=== PATIENT | female | born 1995 | race Caucasian/White ===

== ENCOUNTER → 2017-07-05 | Outpatient (CLI) | payer OTHER | LOC: FLAB 12:47 | PROVIDERS: ATTEND Physician Assistant | DX: R10.9 Unspecified abdominal pain (principal) ==

== ENCOUNTER 2017-11-08 19:19 | Emergency (ER) | payer OTHER ==
--- NOTE | 2017-11-08 19:40 | EDPHY ---
H & P Stated Complaint: LLQ abd pain that started 2 weeks ago Source: Patient, RN/MD Exam Limitations: No limitations - Personal History LMP (Females 10-55): Extended Cycle BCP/Inj Current Tetanus/Diphtheria Vaccine: Yes Current Tetanus Diphtheria and Acellular Pertussis (TDAP): Yes - Medical/Surgical History Hx Asthma: No Hx Chronic Respiratory Disease: No Hx Diabetes: No Hx Cardiac Disease: No Hx Renal Disease: No Hx Cirrhosis: No Hx Alcoholism: No Hx HIV/AIDS: No Hx Splenectomy or Spleen Trauma: No Other PMH: cholecystectomy, bladder surgery, dental surgery - Social History Smoking Status: Never smoked Time Seen by Provider: 11/08/17 19:39 HPI/ROS: HPI: This is a 21-year-old female who presents with Chief Complaint: LLQ abd pain that started 2 weeks ago Location: Left lower quadrant Quality: Sharp, constant pain Duration: 2 weeks Signs and Symptoms: no fever, no nausea, no vomiting, no hematemesis, no blood in stool, no abdominal bloating, no diarrhea, no back pain, no urinary symptoms , no vaginal bleeding/discharge, no indigestion, no chest pain, no shortness of breath Timing: Worsening Severity: 10 out 10 Context: Patient is a student at [employer] from [employer] with complaints of 2 weeks worsening history of left lower quadrant pain that is now sharp, constant, nonradiating in nature. At work they performed a urinalysis that was normal as well as felicity a CBC that was unremarkable per the nurse practitioner. X-ray performed and showed no significant stool burden. On extended [id number] and has not had of period in 4 years. Patient denies any increased exercise or abdominal exercises. Reports some nausea but no vomiting/diarrhea/fever. Reports had a bowel movement today. Modifying Factors: None Comment: ROS: see HPI Constitutional: No fever, no chills, no weight loss Eyes: No blurred vision Respiratory: No shortness of breath, no cough Cardiovascular: No chest pain, no palpitations Gastrointestinal: + nausea, no vomiting, no diarrhea, no hematemesis, no blood in stool Genitourinary: No dysuria, no blood in urine Extremities: No myalgias, no edema Neurologic: No weakness, no numbness Skin: No rashes, no petechiae Hematologic: No bruising, no bleeding MEDICAL/SURGICAL/SOCIAL HISTORY: Medical history: Generally healthy. Does not take any regular medications. Surgical history: cholecystectomy, bladder surgery, dental surgery Social history: Student at [employer]. Family history noncontributory. CONSTITUTIONAL: Pleasant young adult white female, appears like she is in pain , awake and alert, no obvious distress HEENT: Atraumatic and normocephalic, PERRL, EOMI. Tympanic membranes clear. Oropharynx clear, no exudate and moist pink mucosa. Airway patent. No lymphadenopathy. No meningismus. Cardiovascular: Normal S1/S2, regular rate, regular rhythm, without murmur rub or gallop. PULMONARY/CHEST: Symmetrical and nontender. Clear to auscultation bilaterally. Good air movement. No accessory muscle usage. ABDOMEN: Soft, nondistended, severe left lower quadrant tenderness, no rebound , + guarding, no peritoneal signs, no masses or organomegaly. No CVAT. EXTREMITIES: 2/2 pulses, strength 5/5, no deformities, no clubbing, no cyanosis or edema. NEUROLOGICAL: no focal neuro deficits. GCS 15. SKIN: Warm and dry, no erythema. no rash. Good capillary refill. (Stacy Carbajal) Constitutional: Initial Vital Signs Temperature (C) 36.9 C 11/08/17 19:24 Heart Rate 100 11/08/17 19:24 Respiratory Rate 16 11/08/17 19:24 Blood Pressure 119/79 11/08/17 19:24 O2 Sat (%) 96 11/08/17 19:24 O2 Delivery Mode Room Air Allergies/Adverse Reactions: copper Allergy (Verified 11/08/17 19:28) hydrocodone Allergy (Verified 11/08/17 19:28) Home Medications: Medication Instructions Recorded Polyethylene Glycol 3350 [Miralax 17 gm PO DAILY #20 pkt 11/08/17 17 gm (*)] Medical Decision Making ED Course/Re-evaluation: Labs, IV medication, IV fluids, CT abdomen and pelvis scan Vital signs reviewed upon arrival in stable. No systemic signs. 1954: Given 1 L normal saline, IV morphine, IV Zofran 2035: Labs reviewed and grossly unremarkable. Called by radiologist who advised that CT abdomen and pelvis scan shows no acute intra-abdominal pathology. Reassessed patient reports abdomen no longer has discomfort. Abdominal exam is soft and nontender. Advised that moderate stool burden is seen on night time babysitter film. Patient reports that a similar incident happened in June. She admits started not drink enough water with poor diet consisting of process food. Patient wants to be discharged home with MiraLax daily and supportive care. This patient was seen under the supervision of my secondary supervising physician. I evaluated care for this patient independently. (Stacy Carbajal) I did not see this patient while she was in the emergency department. However her care was discussed with the PA while the patient was in the department. I agree with treatment plan and management (Milan Mckenna) Differential Diagnosis: Abdominal pain including but not limited to appendicitis, cholecystitis, gastritis and urinary tract infection. (Stacy Carbajal) - Data Points Laboratory Results: Laboratory Results 11/08/17 20:12 11/08/17 20:12 Medications Given: Discontinued Medications Sodium Chloride (Ns) 1,000 mls @ 0 mls/hr IV EDNOW ONE; Wide Open PRN Reason: Protocol Stop: 11/08/17 19:52 Last Admin: 11/08/17 20:12 Dose: 1,000 mls Morphine Sulfate (Morphine) 6 mg IVP EDNOW ONE Stop: 11/08/17 19:52 Last Admin: 11/08/17 20:10 Dose: Not Given Morphine Sulfate (Morphine) 6 mg IVP EDNOW ONE Stop: 11/08/17 20:10 Last Admin: 11/08/17 20:15 Dose: Not Given Morphine Sulfate (Morphine) 6 mg IVP EDNOW ONE Stop: 11/08/17 20:11 Last Admin: 11/08/17 20:15 Dose: Not Given Morphine Sulfate (Morphine) 6 mg IVP EDNOW ONE Stop: 11/08/17 20:18 Last Admin: 11/08/17 20:19 Dose: 6 mg Ondansetron HCl (Zofran) 4 mg IVP EDNOW ONE Stop: 11/08/17 19:52 Last Admin: 11/08/17 20:14 Dose: 4 mg Ondansetron HCl (Zofran Odt 4 Mg Prepack#2) 1 btl TAKEHOME EDNOW ONE Stop: 11/08/17 21:58 Last Admin: 11/08/17 22:01 Dose: 1 btl Ondansetron HCl (Zofran) 4 mg IVP EDNOW ONE Stop: 11/08/17 22:03 Last Admin: 11/08/17 22:04 Dose: 4 mg Departure - Departure Disposition: Home, Routine, Self-Care Clinical Impression: Constipation Condition: Good Instructions: Ondansetron (By mouth), Constipation (ED), High Fiber Diet (ED) Additional Instructions: Take MiraLax daily with bottle of Gatorade x7 days and then daily as needed for constipation. Consume a minimum of 8-10 glasses of water or electrolyte fluid replacement drinks that include Gatorade, Powerade, Pedialyte. Eat a bland diet for the next 48 hours and then slowly advance as tolerated. Return to the Emergency Room if symptoms do not resolve in the next 48-72 hours , you spike a fever > 102 F, or experience intractable abdominal pain/nausea/ vomiting. Referrals: [facility],. [Clinic] - As per Instructions Prescriptions: Polyethylene Glycol 3350 [Miralax 17 gm (*)] 17 gm PO DAILY #20 pkt
[2017-11-08] MEDS ORDERED: NS 1,000 ML IV ONE (19:51)
[2017-11-08] MEDS ORDERED: ONDANSETRON 4 MG/2 ML VIAL IVP ONE ×2 (19:51→22:02)
[2017-11-08] MEDS ORDERED: IOPAMIDOL (ISOVUE-300) 100 ML BTL ONE (19:54)
[2017-11-08 20:16] LABS: PLATELET COUNT 294 10^3/uL (150-400)
[2017-11-08] MEDS ORDERED: ONDANSETRON 4MG PREPACK#2 BTL TAKEHOME ONE ×2 (21:56→21:57)
[2017-11-08] MEDS ORDERED: ONDANSETRON 4 MG/2 ML VIAL ONE (21:58)
[2017-11-08 22:12] VITALS: BP 130/78
== END 2017-11-08 22:12 | disposition home or self-care (01) ==
DX: K59.00 Constipation, unspecified (principal); E86.9 Volume depletion, unspecified; Z90.49 Acquired absence of other specified parts of digestive tract
CPT/HCPCS: 96374; J2270; J2405; Q9967

== ENCOUNTER 2017-12-10 12:52 | Emergency (ER) | payer OTHER ==
[2017-12-10 13:00] VITALS: BP 134/85
--- NOTE | 2017-12-10 13:05 | EDPHY ---
H & P Time Seen by Provider: 12/10/17 13:00 HPI/ROS: CHIEF COMPLAINT: "I'm here for surgery on my wrist" HISTORY OF PRESENT ILLNESS: 22-year-old left hand dominant female was roller skating last evening she fell on outstretched left wrist. She complained of pain at that time, seen at [facility] this morning sent to the ER for evaluation after x-ray showed a fracture. She is in the ER stating that she was told she needs surgery today. She denies: Paresthesia, break in skin, discoloration, head injury, proximal pain or injury. PRIMARY CARE PROVIDER: REVIEW OF SYSTEMS: A ten point review of systems was performed and is negative with the exception of the items mentioned in the HPI PHYSICAL EXAM (Prior to examination, patient consented to physical exam, hands were washed and my usual and customary physical exam procedures followed) 1) GENERAL: Well-developed, well-nourished, alert and oriented. Appears to be in no acute distress. 2) HEAD: Normocephalic 3) HEENT: Pupils equal, round, reactive to light bilaterally. 4) LUNGS: Breathing comfortably. 5) MUSCULOSKELETAL: Left upper extremity volar short Ortho Glass splint in place, taken down revealing soft tissue swelling to the distal radius with associated tenderness. No tenting of tissue. No discoloration. Soft compartments. Normal coloration. 6) SKIN: No break in skin, no puncture wound, no laceration 7) VASCULAR: pulses and cap refill present are brisk 8) NEUROLOGIC: Radial, ulnar, median nerve function intact with no deficits appreciated on exam DIFFERENTIAL DIAGNOSIS: in no particular order including but not limited to fracture, sprain, compartment syndrome Smoking Status: Current some day smoker Constitutional: Initial Vital Signs Temperature (C) 37.0 C 12/10/17 12:57 Heart Rate 108 H 12/10/17 12:57 Respiratory Rate 16 12/10/17 12:57 Blood Pressure 134/85 H 12/10/17 12:57 O2 Sat (%) 99 12/10/17 12:57 O2 Delivery Mode Room Air Allergies/Adverse Reactions: copper Allergy (Verified 11/08/17 19:28) hydrocodone Allergy (Verified 11/08/17 19:28) Home Medications: Medication Instructions Recorded NK [No Known Home Meds] 12/10/17 MDM/Departure - MDM Procedures: Procedure: Splint A sugar-tong Orthoglass splint was applied by ER instrument technician. After application of the splint I returned and re-examined the patient. The splint was adequately immobilizing the joint and distal to the splint the patient's circulation and sensation were intact. Patient shows no signs of compartment syndrome. Was given orthopedic precautions. Medications Given: Discontinued Medications Ibuprofen (Motrin) 800 mg PO EDNOW ONE Stop: 12/10/17 13:09 Last Admin: 12/10/17 13:08 Dose: 800 mg ED Course/Re-evaluation: This patient brought with her as CD containing her x-rays. I reviewed these myself showing a nondisplaced distal radius transverse fracture with dorsal angulation. This is a closed fracture. She has no nerve deficits. She is neurovascular intact with no evidence of compartment syndrome. I do not identify orthopedic emergency. I do not think that emergent orthopedic consultation or intervention is indicated; however, she will necessitate follow up with Orthopedics.. Today is Tuesday. I think she can be treated on outpatient basis and follow up with Orthopedics this week. She has been splinted with a sugar-tong splint. Usual and customary orthopedic precautions instructions provided. Care of patient under supervision of secondary supervising physician Dr Gudino with whom I discussed case. Neither Dr Gudino , I or ER staff, received incoming patient information from urgent care. - Depart Disposition: Home, Routine, Self-Care Clinical Impression: Other non-in-line roller-skating accident, initial encounter, Displaced fracture of left ulna styloid process, initial encounter for closed fracture Fracture of left distal radius Qualifiers: Encounter type: initial encounter Fracture type: closed Fracture morphology: Colles' Qualified Code(s): S52.532A - Colles' fracture of left radius, initial encounter for closed fracture Condition: Good Instructions: Wrist Fracture in Adults (ED) Additional Instructions: Return to the ER immediately if you experience discoloration, have worsening pain, numbness, tingling, or any other symptoms that concern you. If you received x-rays in the emergency department today, be advised, that ligamentous , tendon, muscular, and other non-bony injury cannot be fully ruled out. Try to keep your affected extremity elevated above the level of your chest, and keep cold packs on the affected area, for the next 48 hours. Referrals: Antwan Quezada MD [Medical Doctor] - 2-3 days, call for appt.
[2017-12-10] MEDS ORDERED: IBUPROFEN 800 MG TAB PO ONE ×2 (13:07→13:08)
--- NOTE | 2017-12-11 11:08 | EDPHY ---
ED Progress Note Narrative: The patient was seen in the emergency department yesterday with wrist fracture. She was offered prescription pain medication but declined. She now presents requesting prescription for pain medication. She was given a prescription for oxycodone. She does have a hydrocodone allergy listed, however it makes her nauseous. We encouraged her to take this medication with food. She was also given a prescription for Zofran ODT to use as needed for symptoms of nausea. She is scheduled to follow up with orthopedic surgery.
== END 2017-12-10 14:05 | disposition home or self-care (01) ==
DX: S52.532A Colles' fracture of left radius, initial encounter for closed fracture (principal); S52.612A Displaced fracture of left ulna styloid process, initial encounter for closed fracture; F17.200 Nicotine dependence, unspecified, uncomplicated; V00.128A Other non-in-line roller-skating accident, initial encounter; Y99.8 Other external cause status; Y93.51 Activity, roller skating (inline) and skateboarding